=== PATIENT | male | born 1955 | race Caucasian/White ===

== ENCOUNTER → 2019-10-06 | Outpatient (CLI) | payer BC | END | disposition home or self-care (01) | LOC: RAD 08:36 → EEVIPCON 08:36 | PROVIDERS: ATTEND Internal Medicine Critical Care Medicine | DX: I82.402 Acute embolism and thrombosis of unspecified deep veins of left lower extremity (principal) | CPT/HCPCS: 93971 ==

== ENCOUNTER → 2020-06-06 | Outpatient (CLI) | payer BC ==
[2020-06-06 11:57] LABS: BASOPHILS % 0.8 % (0.0-2.0); EOSINOPHILS % 2.6 % (0.0-5.0); HEMATOCRIT. 45.2 % (42.0-52.0); HEMOGLOBIN. 15.3 g/dL (14.0-18.0); LYMPHOCYTES % 25.6 % (20.0-50.0); MEAN CORPUSCULAR HEMOGLOBIN 31.4 pg (28.0-32.0); MEAN CORPUSCULAR VOLUME 92.6 fL (80.0-94.0); MEAN PLATELET VOLUME 8.1 fl (7.4-10.4); MONOCYTES % 8.2 % (2.0-8.0); NEUTROPHILS % 62.8 % (40.0-76.0); PLATELET 265 x1000/uL (130-400); RED BLOOD CELL COUNT 4.88 mill/uL (4.7-6.1); RED CELL DISTRIBUTION WIDTH 13.5 % (11.6-14.6)
[2020-06-06 12:16] LABS: CHLORIDE 108 mEq/L (98-107)
[2020-06-06 12:25] LABS: LDL CHOLESTEROL 94 mg/dL (5-100)
[2020-06-06 12:27] LABS: HDL CHOLESTEROL 51 mg/dL (40-59)
[2020-06-06 13:21] LABS: PROSTRATE SPECIFIC AG TOTAL 0.91 ng/mL (0.0-4.0); TRIOIODOTHYRONINE TOTAL 1.22 ng/ml (0.60-1.81)
[2020-06-08 13:07] LABS: VITAMIN D 1-25 DIHYDROXY 43.4 pg/mL (19.9-79.3)
== END | disposition home or self-care (01) ==
LOC: LAB 11:16
PROVIDERS: ATTEND Internal Medicine Critical Care Medicine
DX: I10 Essential (primary) hypertension (principal); E78.5 Hyperlipidemia, unspecified
CPT/HCPCS: 36415; 80053; 80061; 80076; 82652; 83036; 84153; 84403; 84443; 84480; 85025; G0103